=== PATIENT | male | born 1970 ===

== ENCOUNTER 2020-05-27 12:15 | Outpatient (CLI) | payer SELFPAY ==
[2020-05-28 19:31] LABS: SARS-CoV-2 RNA PCR Negative
== END 2020-05-27 12:16 | disposition home or self-care (01) ==
LOC: CHSLAB 12:19
PROVIDERS: PCP Nurse Practitioner Family; Visit Provider Nurse Practitioner Family
DX: Z20.822 Contact with and (suspected) exposure to COVID-19 (principal)
CPT/HCPCS: C9803; U0003

== ENCOUNTER 2024-04-17 16:43 | Emergency (ER) | payer OTHER, SELFPAY ==
[2024-04-17 16:45] VITALS: BP 195/96; PULSE 115; RESP 20; TEMP 37.4; O2SAT 99
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
[2024-04-17 18:27] VITALS: BP 168/98; PULSE 100; RESP 18; TEMP 36.7; O2SAT 100
[2024-04-17] MEDS: SULFAMETHOXAZOLE/TRIMETHOPRIM 800/160 MG DS TABLET 1 TAB PO (18:33)
[2024-04-17] MEDS: cefTRIAXone 1 GM, LIDOCAINE HCL 1% LOCAL INJ 2.1 ML IM (18:34)
== END 2024-04-17 18:40 | disposition home or self-care (01) ==
PROVIDERS: Emergency Provider Emergency Medicine
DX: L03.116 Cellulitis of left lower limb (principal); L03.115 Cellulitis of right lower limb; L30.9 Dermatitis, unspecified; F17.200 Nicotine dependence, unspecified, uncomplicated
CPT/HCPCS: 96372; 99283; A9270; J0696; J2003

== ENCOUNTER 2024-08-25 15:44 | Emergency (ER) | payer OTHER, SELFPAY ==
--- NOTE | ~2024-08-25 | CT_ITS ---
CT cervical spine wo con Ordering provider: Dennis Mccarty MD History: . chronic neck pain . Comparison: None. Technique: CT of the cervical spine was performed without contrast. Sagittal and coronal reformatted images were also obtained and reviewed. Automated exposure control and iterative reconstruction quynh hnique were employed. The dose-length product was 467.38 mGy-cm. FINDINGS: VERTEBRAE: No subluxation or acute fracture. The occipital condyles are intact. Degenerative changes of the spine. DISC SPACES: Narrowing of the disc C6-C7. Uncovertebral joint osteoarthritic changes at the same leve l. Narrowing of the right foramen at the level of C4-C5. Bilateral narrowing of the foramina at the l evel of C6-C7. PARASPINOUS SOFT TISSUES: Normal. IMPRESSION: No acute osseous abnormality cervical spine. Degenerative disc disease at the level of C6-C7. Reviewed, dictated and finalized at location A.
--- NOTE | ~2024-08-25 | CT_ITS ---
CLINICAL INDICATION: Hand feels frozen . Decreased mobility within the right hand without inciting i njury. . COMPARISON: None. No plain film evaluation of the right hand has been performed. TECHNIQUE: Computed tomography (CT) of the right hand was performed without intravenous contrast. The dose-length product was 421.28 mGy-cm. FINDINGS/OBSERVATIONS: No acute or subacute fracture is identified within the right hand. Significant degenerative disease is identified, suggesting osteoarthritis within the proximal interph alangeal joint spaces. No discrete fluid collection is appreciated on soft tissue evaluation. No gas within the soft tissues. IMPRESSION: Degenerative disease, without acute fracture. Reviewed, dictated and finalized at location A.
[2024-08-25 15:44] VITALS: BP 193/119; PULSE 98; RESP 16; TEMP 36.6; O2SAT 100
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
--- OUTSIDE RECORDS SUMMARY | 2024-08-25 16:52 | XMS_ITS | Clinical Summary ---
Author Organization [facility] Address [address] [place] [id number] Care Team Providers Care Phlebotomist Supervisor/Instructor Name Role Phone None, Provider Primary Care Provider Unavaila ble Allergies No known active allergies Social History Tobacco Use Types Packs/Day Years Used Date Smoking Tobacco: Never Assessed Sex and Gender Information Value Date Recorded Sex Assigned at Not on file Legal Sex Male 7:11 PM CDT Gender Identity Not on file Sexual Orientation Not on file Last Filed Vital Signs Vital Sign Reading Time Taken Comments Blood Pressure 124/74 07/15/2023 12:45 PM PHERESIS NURSE Pulse 71 07/15/2023 12:45 PM PHERESIS NURSE Temperature 36.4 C (97.6 F) 07/15/2023 10:46 AM PHERESIS NURSE Respiratory Rate 18 07/15/2023 12:45 PM PHERESIS NURSE Oxygen Saturation 95% 07/15/2023 12:45 PM PHERESIS NURSE Inhaled Oxygen Concentration - - Weight 86.2 kg (190 lb) 07/15/2023 10:40 AM PHERESIS NURSE Height 157.5 cm (5' 2 ) 07/15/2023 10:40 AM PHERESIS NURSE Body Mass Index 34.75 07/15/2023 10:40 AM PHERESIS NURSE Plan of Treatment Health Maintenance Due Date Last Done Comments Colorectal Cancer Screening Colonoscopy (10 Years) 1968 Annual Physical 1971 Hepatitis C 1986 DTaP, Tdap and Td Vaccines ( 1 - Tdap) 1987 Hepatitis B Vaccines (1 of 3 - 19+ 3-dose series) 1987 Zoster Vaccines (1 of 2) 2018 COVID-19 Vaccine ( - 2023-2 5 season) 2024 Meningococcal B Vaccine Aged Out No l onger eligible based on patient's age to complete this topic Meningococcal Vaccine Aged Out No anita effie eligible based on patient's age to complete this topic Pneumococcal Vaccine: Pediat rics (0 to 5 Years) and At-Risk Patients (6 to 64 Years) Aged Out No longer eligible b ased on patient's age to complete this topic RSV Immunizations Under 20 Months Aged Out No longer eligible based on patient's age to complete this topic Insurance [place] Care Teams Phlebotomist Supervisor/Instructor Relationship Specialty Start Date End Date None, Provider, PCP - General UNKNOWN PHYSICIAN SPECIALTY 07/15/23
[2024-08-25 17:06] VITALS: BP 176/110; PULSE 91; RESP 16; O2SAT 99
[2024-08-25 17:11] VITALS: BP 176/110; PULSE 91; RESP 16; TEMP 36.6; O2SAT 99
== END 2024-08-25 17:11 | disposition home or self-care (01) ==
PROVIDERS: Emergency Provider Emergency Medicine; PCP Internal Medicine
DX: M72.0 Palmar fascial fibromatosis [Dupuytren] (principal); I10 Essential (primary) hypertension; F17.200 Nicotine dependence, unspecified, uncomplicated
CPT/HCPCS: 72125; 73200; 99284